=== PATIENT | female | born 1945 | race African-American/Black ===

== ENCOUNTER 2020-08-21 12:43 | Emergency (ER) | payer MEDICARE, OTHER ==
[2020-08-21] MEDS ORDERED: NITROGLYCERIN 0.4MG TABLET SL SL PRN (13:15)
[2020-08-21] MEDS ORDERED: ASPIRIN 81MG TABLET PO ONE (13:15)
[2020-08-21 14:00] VITALS: BP 146/92
== END 2020-08-21 14:12 | disposition home or self-care (01) ==
LOC: ER 12:58 → CANBEDREQ 14:24
DX: R07.89 Other chest pain (principal); I10 Essential (primary) hypertension; R94.31 Abnormal electrocardiogram [ECG] [EKG]; J84.9 Interstitial pulmonary disease, unspecified; E11.9 Type 2 diabetes mellitus without complications; E78.00 Pure hypercholesterolemia, unspecified
CPT/HCPCS: 71045; 93005; 99283